=== PATIENT | male | born 1950 | race Caucasian/White ===

== ENCOUNTER 2019-11-08 14:56 | Inpatient (IN) ==
[2019-11-08] MEDS ORDERED: *HR* HYDROmorphone (PF) 1 MG/ML SYRINGE IVP ONE (15:19)
[2019-11-08 15:47] LABS: Basophils # 0.1 K/mcL (0.0-0.2); Basophils % 0.6 %; Eosinophils # 0.1 K/mcL (0.0-0.6); Eosinophils % 0.5 %; Hematocrit 40.2 % (37.5-50.1); Hemoglobin 13.3 g/dL (12.9-16.9); Immature Granulocytes % 0.6 % (0-4); Lymphocytes % 25.1 %; Mean Corpuscular HGB Conc 33.1 g/dL (31.6-35.5); Mean Corpuscular Volume 87.6 fL (83.0-100.0); Mean Platelet Volume 10.3 fL (9.4-12.4); Monocytes % 8.5 %; Neutrophils # 7.6 K/mcL (1.6-8.9); Platelet Count 465 K/mcL (140-400); Red Blood Count 4.59 M/mcL (4.19-5.50); Red Cell Distribution Width 14.2 % (11.5-14.5); Segmented Neutrophils % 64.7 %; White Blood Count 11.8 K/mcL (4.3-11.1)
[2019-11-08 15:56] LABS: BUN/Creatinine Ratio 21 (6-26); Blood Urea Nitrogen 24 mg/dL (8-23); Calcium 9.8 mg/dL (8.6-10.3); Carbon Dioxide 27 mEq/L (23-29); Chloride 100 mEq/L (98-107); Glucose 227 mg/dL (70-105); Osmolality,Calculated 297 (280-300); Potassium 3.8 mEq/L (3.5-5.1); Sodium 138 mEq/L (136-145); Troponin I 0.03 ng/mL (< 0.04); eGFR For African Americans > 60 (> 60); eGFR For Non-African Americans > 60 (> 60)
[2019-11-08 16:24] LABS: Bilirubin,Urine Negative (Negative); Blood,Urine Negative (Negative); Clarity,Urine Clear (Clear); Color,Urine Yellow (Yellow); Glucose,Urine (UA) Normal (Normal); Ketones,Urine Negative (Negative); Leukocyte Esterase,Urine Negative (Negative); Nitrite,Urine Negative (Negative); Protein,Urine Trace mg/dL (Neg-Trace); Specific Gravity,Urine 1.016 (1.010-1.025); Urobilinogen,Urine Normal (Normal)
[2019-11-08] MEDS ORDERED: Aspirin 325 MG TABLET PO ONE (16:51)
[2019-11-08] MEDS ORDERED: Naloxone 0.4 MG/ML INJ IVP PRN (16:54)
[2019-11-08] MEDS ORDERED: Ondansetron 4 MG/2 ML VIAL IVP PRN (16:54)
[2019-11-08] MEDS ORDERED: 0.9 % Sodium Chloride 500 ML IVC ONE (17:16)
[2019-11-08] MEDS ORDERED: *HR* Labetalol 20 MG/4 ML SYRINGE IVP PRN (17:16)
[2019-11-08] MEDS ORDERED: Isovue-370 500 ML BOTTLE IVP ONE (17:17)
[2019-11-08] MEDS ORDERED: *HR* Dextrose 50 % in Water (Syg) 50 ML SYRINGE IVP PRN (17:18)
[2019-11-08] MEDS ORDERED: D5% in Water 1,000 ML IVC PRN (17:18)
[2019-11-08] MEDS ORDERED: Dextrose Gel 15 GM/37.5 ML TUBE PO PRN ×2 (17:18)
[2019-11-08] MEDS ORDERED: Acetaminophen 325 MG TABLET PO PRN (17:18)
[2019-11-08] MEDS: *HR* HYDROcodone/Acet 5/325 mg TABLET PO PRN (18:47)
[2019-11-08] MEDS ORDERED: Azithromycin 500 MG in 0.9 % Sodium Chloride 250 ML IVPB SCH (22:00)
[2019-11-08] MEDS: 0.9 % Sodium Chloride 1,000 ML IVC SCH (22:55)
[2019-11-08] MEDS: Nitroglycerin 0.4 MG TAB.SUBL SL PRN ×2 (23:20→23:35)
[2019-11-09] MEDS ORDERED: Morphine Sulfate 2 MG/ML SYRINGE IVP ONE (00:05)
[2019-11-09] MEDS: cefTRIAXone 1,000 MG in Water for inj. (sterile) 10 ML IVP SCH ×2 (00:30→08:54)
[2019-11-09] MEDS ORDERED: Pregabalin 50 MG CAPSULE PO ONE (00:44)
[2019-11-09] MEDS ORDERED: *HR* Promethazine 25 MG/ML VIAL IVP ONE (03:12)
[2019-11-09] MEDS ORDERED: niCARdipine 20 MG in 0.9 % Sodium Chloride 192 ML IVC SCH (03:30)
[2019-11-09] MEDS: tiZANidine 4 MG TABLET PO PRN (04:02)
[2019-11-09 04:33] LABS: Basophils # 0.1 K/mcL (0.0-0.2); Basophils % 0.6 %; Eosinophils % 0.1 %; Immature Granulocytes % 0.5 % (0-4); Lymphocytes # 2.3 K/mcL (0.6-4.6); Lymphocytes % 21.4 %; Mean Corpuscular HGB Conc 32.6 g/dL (31.6-35.5); Mean Corpuscular Hemoglobin 28.4 pg (28.0-33.3); Mean Corpuscular Volume 87.1 fL (83.0-100.0); Mean Platelet Volume 10.5 fL (9.4-12.4); Monocytes # 0.6 K/mcL (0.0-1.3); Monocytes % 5.1 %; Neutrophils # 7.8 K/mcL (1.6-8.9); Platelet Count 425 K/mcL (140-400); Red Blood Count 5.28 M/mcL (4.19-5.50); Red Cell Distribution Width 14.1 % (11.5-14.5); Segmented Neutrophils % 72.3 %; White Blood Count 10.8 K/mcL (4.3-11.1)
[2019-11-09 04:51] LABS: BUN/Creatinine Ratio 18 (6-26); Blood Urea Nitrogen 18 mg/dL (8-23); Calcium 10.4 mg/dL (8.6-10.3); Carbon Dioxide 25 mEq/L (23-29); Chloride 98 mEq/L (98-107); Chol/HDL Ratio 4.1 (0-4.9); Cholesterol 213 mg/dL (< 200); Glucose 252 mg/dL (70-105); HDL Cholesterol 52 mg/dL (40-59); LDL Cholesterol,Calculated 136 mg/dL (0-99); Magnesium 1.7 mg/dL (1.6-2.6); Osmolality,Calculated 294 (280-300); Potassium 3.6 mEq/L (3.5-5.1); Sodium 137 mEq/L (136-145); Triglycerides 124 mg/dL (< 150); eGFR For African Americans > 60 (> 60); eGFR For Non-African Americans > 60 (> 60)
[2019-11-09] MEDS: niCARdipine 20 MG in 0.9 % Sodium Chloride 192 ML IVC SCH ×3 (05:25→10:27)
[2019-11-09 08:41] LABS: Estimated Average Glucose 177 mg/dl
[2019-11-09] MEDS: *HR* HYDROcodone/Acet 5/325 mg TABLET PO PRN (08:53)
[2019-11-09] MEDS: Famotidine 20 MG TABLET PO SCH ×2 (08:53→20:31)
[2019-11-09] MEDS: Isosorbide MONOnitrate (24 HR) 30 MG TAB.ER.24H PO SCH (08:53)
[2019-11-09] MEDS: carvediloL 6.25 MG TABLET PO SCH ×2 (08:53→16:32)
[2019-11-09] MEDS: Aspirin Enteric Coated 81 MG Tablet PO SCH (08:53)
[2019-11-09] MEDS: Insulin LISPRO 300 UNITS/3 ML VIAL SQ SCH ×3 (09:03→16:31)
[2019-11-09] MEDS: *HR* OxyCODONE ER (12 HR) 20 MG TABLET PO SCH ×2 (09:04→20:31)
[2019-11-09] MEDS: Fluticasone Propionate Nasal 50 MCG/SPRAY BOTTLE NS SCH (09:05)
[2019-11-09] MEDS: hydrALAZINE 25 MG TABLET PO SCH ×3 (09:05→23:20)
[2019-11-09] MEDS: Pregabalin 50 MG CAPSULE PO SCH ×3 (09:05→20:31)
[2019-11-09] MEDS: ARIPiprazole 5 MG TABLET PO SCH (09:06)
[2019-11-09] MEDS: *HR* OxyCODONE Immed Rel 5 MG TABLET PO PRN (11:48)
[2019-11-09] MEDS ORDERED: Perflutren Lipid Microsphere 1.3 ML in 0.9 % Sodium Chloride 8.7 ML IVP ONE (12:50)
[2019-11-09] MEDS: Ampicillin/Sulbactam 1,500 MG in 0.9 % Sodium Chloride Mini Bag 100 ML IVPB SCH ×2 (18:42→23:25)
[2019-11-09] MEDS: 0.9 % Sodium Chloride 1,000 ML IVC SCH (20:33)
[2019-11-10] MEDS: Ampicillin/Sulbactam 1,500 MG in 0.9 % Sodium Chloride Mini Bag 100 ML IVPB SCH ×3 (05:32→17:09)
[2019-11-10] MEDS ORDERED: Regadenoson 0.4 MG/5 ML SYRINGE IVP ONE ×2 (06:08→06:17)
[2019-11-10] MEDS: Insulin LISPRO 300 UNITS/3 ML VIAL SQ SCH ×3 (07:47→17:08)
[2019-11-10] MEDS: carvediloL 6.25 MG TABLET PO SCH ×2 (10:09→17:08)
[2019-11-10] MEDS: ARIPiprazole 5 MG TABLET PO SCH (10:09)
[2019-11-10] MEDS: Famotidine 20 MG TABLET PO SCH ×2 (10:09→21:16)
[2019-11-10] MEDS: hydrALAZINE 25 MG TABLET PO SCH (10:09)
[2019-11-10] MEDS: Pregabalin 50 MG CAPSULE PO SCH ×3 (10:09→21:17)
[2019-11-10] MEDS: Aspirin Enteric Coated 81 MG Tablet PO SCH (10:10)
[2019-11-10] MEDS: Isosorbide MONOnitrate (24 HR) 30 MG TAB.ER.24H PO SCH (10:10)
[2019-11-10] MEDS: *HR* OxyCODONE ER (12 HR) 20 MG TABLET PO SCH ×2 (10:10→21:17)
[2019-11-10] MEDS: Fluticasone Propionate Nasal 50 MCG/SPRAY BOTTLE NS SCH (10:14)
[2019-11-10] MEDS ORDERED: E-Z-PAQUE (BARIUM SULF) SUSP 1 BOTTLE PO ONE (16:06)
[2019-11-10] MEDS ORDERED: E-Z-HD (BARIUM SULF) SUSPENSION PO ONE (16:06)
[2019-11-10] MEDS: *HR* HYDROcodone/Acet 5/325 mg TABLET PO PRN (17:16)
[2019-11-11] MEDS: Ampicillin/Sulbactam 1,500 MG in 0.9 % Sodium Chloride Mini Bag 100 ML IVPB SCH ×5 (00:08→23:18)
[2019-11-11] MEDS: *HR* OxyCODONE Immed Rel 5 MG TABLET PO PRN ×2 (03:28→16:41)
[2019-11-11 05:29] LABS: Basophils # 0.1 K/mcL (0.0-0.2); Basophils % 0.8 %; Eosinophils # 0.4 K/mcL (0.0-0.6); Eosinophils % 4.5 %; Hematocrit 37.2 % (37.5-50.1); Immature Granulocytes % 0.1 % (0-4); Lymphocytes # 3.6 K/mcL (0.6-4.6); Lymphocytes % 45.7 %; Mean Corpuscular HGB Conc 32.8 g/dL (31.6-35.5); Mean Corpuscular Hemoglobin 28.8 pg (28.0-33.3); Mean Corpuscular Volume 87.9 fL (83.0-100.0); Mean Platelet Volume 10.2 fL (9.4-12.4); Monocytes # 0.8 K/mcL (0.0-1.3); Monocytes % 10.1 %; Platelet Count 419 K/mcL (140-400); Red Blood Count 4.23 M/mcL (4.19-5.50); Red Cell Distribution Width 14.3 % (11.5-14.5); Segmented Neutrophils % 38.8 %; White Blood Count 7.8 K/mcL (4.3-11.1)
[2019-11-11 05:41] LABS: Calcium 9.1 mg/dL (8.6-10.3); Potassium 3.8 mEq/L (3.5-5.1)
[2019-11-11 05:53] LABS: Hemoglobin 12.2 g/dL (12.9-16.9)
[2019-11-11] MEDS: Insulin LISPRO 300 UNITS/3 ML VIAL SQ SCH ×3 (07:59→16:38)
[2019-11-11] MEDS: Aspirin Enteric Coated 81 MG Tablet PO SCH (09:41)
[2019-11-11] MEDS: ARIPiprazole 5 MG TABLET PO SCH (09:42)
[2019-11-11] MEDS: Famotidine 20 MG TABLET PO SCH ×2 (09:42→20:15)
[2019-11-11] MEDS: *HR* OxyCODONE ER (12 HR) 20 MG TABLET PO SCH ×2 (09:42→20:17)
[2019-11-11] MEDS: carvediloL 6.25 MG TABLET PO SCH ×2 (09:42→16:37)
[2019-11-11] MEDS: Pregabalin 50 MG CAPSULE PO SCH ×3 (09:43→20:17)
[2019-11-11] MEDS: Fluticasone Propionate Nasal 50 MCG/SPRAY BOTTLE NS SCH (09:43)
[2019-11-11] MEDS: *HR* HYDROcodone/Acet 5/325 mg TABLET PO PRN (13:10)
[2019-11-11] MEDS ORDERED: 0.9 % Sodium Chloride 1,000 ML IVC SCH (14:00)
[2019-11-12 05:51] LABS: Basophils # 0.1 K/mcL (0.0-0.2); Basophils % 0.7 %; Eosinophils # 0.5 K/mcL (0.0-0.6); Hematocrit 39.4 % (37.5-50.1); Hemoglobin 12.4 g/dL (12.9-16.9); Immature Granulocytes % 0.3 % (0-4); Lymphocytes # 3.5 K/mcL (0.6-4.6); Lymphocytes % 35.7 %; Mean Corpuscular HGB Conc 31.5 g/dL (31.6-35.5); Mean Corpuscular Hemoglobin 28.9 pg (28.0-33.3); Mean Corpuscular Volume 91.8 fL (83.0-100.0); Monocytes # 0.9 K/mcL (0.0-1.3); Monocytes % 9.3 %; Neutrophils # 4.9 K/mcL (1.6-8.9); Platelet Count 380 K/mcL (140-400); Red Blood Count 4.29 M/mcL (4.19-5.50); Red Cell Distribution Width 14.4 % (11.5-14.5); White Blood Count 9.9 K/mcL (4.3-11.1)
[2019-11-12] MEDS: Ampicillin/Sulbactam 1,500 MG in 0.9 % Sodium Chloride Mini Bag 100 ML IVPB SCH ×3 (06:07→18:37)
[2019-11-12 06:10] LABS: BUN/Creatinine Ratio 20 (6-26); Blood Urea Nitrogen 28 mg/dL (8-23); Calcium 9.2 mg/dL (8.6-10.3); Carbon Dioxide 29 mEq/L (23-29); Chloride 104 mEq/L (98-107); Glucose 134 mg/dL (70-105); Osmolality,Calculated 293 (280-300); Potassium 4.3 mEq/L (3.5-5.1); Sodium 138 mEq/L (136-145); eGFR For African Americans > 60 (> 60); eGFR For Non-African Americans 52 (> 60)
[2019-11-12] MEDS: Insulin LISPRO 300 UNITS/3 ML VIAL SQ SCH ×3 (08:08→18:37)
[2019-11-12] MEDS ORDERED: 0.9 % Sodium Chloride 1,000 ML IVC SCH (08:15)
[2019-11-12] MEDS: Aspirin Enteric Coated 81 MG Tablet PO SCH (08:41)
[2019-11-12] MEDS: *HR* OxyCODONE ER (12 HR) 20 MG TABLET PO SCH ×2 (08:41→21:11)
[2019-11-12] MEDS: ARIPiprazole 5 MG TABLET PO SCH (08:41)
[2019-11-12] MEDS: Pregabalin 50 MG CAPSULE PO SCH ×3 (08:41→21:12)
[2019-11-12] MEDS: Famotidine 20 MG TABLET PO SCH ×2 (08:41→21:10)
[2019-11-12] MEDS: carvediloL 6.25 MG TABLET PO SCH ×2 (08:41→15:42)
[2019-11-12] MEDS: Fluticasone Propionate Nasal 50 MCG/SPRAY BOTTLE NS SCH (08:42)
[2019-11-12] MEDS: *HR* OxyCODONE Immed Rel 5 MG TABLET PO PRN (12:31)
[2019-11-12] MEDS: *HR* HYDROcodone/Acet 5/325 mg TABLET PO PRN (15:42)
[2019-11-12] MEDS ORDERED: Menthol 9.1 MG LOZENGE PO PRN (23:08)
[2019-11-13] MEDS: Ampicillin/Sulbactam 1,500 MG in 0.9 % Sodium Chloride Mini Bag 100 ML IVPB SCH ×2 (00:38→05:44)
[2019-11-13] MEDS: tiZANidine 4 MG TABLET PO PRN (00:39)
[2019-11-13 02:49] LABS: Basophils # 0.1 K/mcL (0.0-0.2); Basophils % 0.6 %; Eosinophils # 0.5 K/mcL (0.0-0.6); Eosinophils % 5.5 %; Hematocrit 38.3 % (37.5-50.1); Immature Granulocytes % 0.1 % (0-4); Lymphocytes # 3.4 K/mcL (0.6-4.6); Lymphocytes % 36.7 %; Mean Corpuscular HGB Conc 31.3 g/dL (31.6-35.5); Mean Corpuscular Hemoglobin 28.8 pg (28.0-33.3); Mean Corpuscular Volume 92.1 fL (83.0-100.0); Mean Platelet Volume 10.4 fL (9.4-12.4); Monocytes # 0.9 K/mcL (0.0-1.3); Neutrophils # 4.4 K/mcL (1.6-8.9); Platelet Count 374 K/mcL (140-400); Red Blood Count 4.16 M/mcL (4.19-5.50); Segmented Neutrophils % 47.1 %; White Blood Count 9.3 K/mcL (4.3-11.1)
[2019-11-13 03:09] LABS: BUN/Creatinine Ratio 15 (6-26); Blood Urea Nitrogen 20 mg/dL (8-23); Calcium 9.2 mg/dL (8.6-10.3); Carbon Dioxide 28 mEq/L (23-29); Chloride 103 mEq/L (98-107); Glucose 109 mg/dL (70-105); Osmolality,Calculated 291 (280-300); Potassium 4.2 mEq/L (3.5-5.1); Sodium 139 mEq/L (136-145); eGFR For African Americans > 60 (> 60); eGFR For Non-African Americans 54 (> 60)
[2019-11-13] MEDS: Insulin LISPRO 300 UNITS/3 ML VIAL SQ SCH (08:16)
[2019-11-13] MEDS: Pregabalin 50 MG CAPSULE PO SCH (08:42)
[2019-11-13] MEDS: Aspirin Enteric Coated 81 MG Tablet PO SCH (08:43)
[2019-11-13] MEDS: carvediloL 6.25 MG TABLET PO SCH (08:43)
[2019-11-13] MEDS: *HR* OxyCODONE ER (12 HR) 20 MG TABLET PO SCH (08:43)
[2019-11-13] MEDS: ARIPiprazole 5 MG TABLET PO SCH (08:43)
[2019-11-13] MEDS: Famotidine 20 MG TABLET PO SCH (08:43)
[2019-11-13] MEDS: Fluticasone Propionate Nasal 50 MCG/SPRAY BOTTLE NS SCH (08:46)
[2019-11-13 12:17] VITALS: BP 170/78
== END 2019-11-13 13:56 | disposition home or self-care (01) | DRG 304 ==
LOC: 3ANU 14:56 → EMEROOARM 14:56 → SUATTDRO 17:03 → 3ANU 18:19 → CDU 11-09 03:44 → 3BNU 11-09 16:46
PROVIDERS: ADMIT Student in an Organized Health Care Education/Training Program; ATTEND Internal Medicine

== ENCOUNTER 2020-07-31 08:29 | Inpatient (IN) ==
[2020-07-31] MEDS ORDERED: 0.9 % Sodium Chloride 500 ML IVC ONE (09:18)
[2020-07-31 09:28] LABS: BUN/Creatinine Ratio 15 (6-26); Blood Urea Nitrogen 24 mg/dL (8-23); Carbon Dioxide 31 mEq/L (23-29); Chloride 99 mEq/L (98-107); Glucose 164 mg/dL (70-105); Osmolality,Calculated 292 (280-300); Potassium 4.7 mEq/L (3.5-5.1); Sodium 137 mEq/L (136-145); eGFR For African Americans 51 (> 60); eGFR For Non-African Americans 42 (> 60)
[2020-07-31 09:29] LABS: Troponin I < 0.03 ng/mL (< 0.04)
[2020-07-31 09:30] LABS: Basophils # 0.1 K/mcL (0.0-0.2); Basophils % 0.8 %; Eosinophils # 0.1 K/mcL (0.0-0.6); Eosinophils % 1.2 %; Hematocrit 39.8 % (37.5-50.1); Hemoglobin 12.3 g/dL (12.9-16.9); Immature Granulocytes % 0.2 % (0-4); Lymphocytes # 2.3 K/mcL (0.6-4.6); Lymphocytes % 24.9 %; Mean Corpuscular HGB Conc 30.9 g/dL (31.6-35.5); Mean Corpuscular Hemoglobin 25.8 pg (28.0-33.3); Mean Corpuscular Volume 83.6 fL (83.0-100.0); Mean Platelet Volume 11.6 fL (9.4-12.4); Monocytes # 0.6 K/mcL (0.0-1.3); Monocytes % 6.5 %; Neutrophils # 6.1 K/mcL (1.6-8.9); Platelet Count 368 K/mcL (140-400); Red Blood Count 4.76 M/mcL (4.19-5.50); Red Cell Distribution Width 15.9 % (11.5-14.5); Segmented Neutrophils % 66.4 %; White Blood Count 9.1 K/mcL (4.3-11.1)
[2020-07-31] MEDS ORDERED: Acetaminophen IV 1,000 MG/100 ML INFUS..BTL IVPB ONE (10:16)
[2020-07-31] MEDS ORDERED: Acetaminophen 325 MG TABLET PO PRN (10:59)
[2020-07-31] MEDS ORDERED: Aspirin 325 MG TABLET PO ONE (11:02)
[2020-07-31] MEDS: *HR* Promethazine 25 MG/ML VIAL IVP PRN ×2 (12:39→20:14)
[2020-07-31] MEDS ORDERED: *HR* Dextrose 50 % in Water (Vial) 50 ML VIAL IVP PRN (13:13)
[2020-07-31] MEDS ORDERED: D5% in Water 1,000 ML IVC PRN (13:13)
[2020-07-31] MEDS ORDERED: Dextrose Gel 15 GM/37.5 ML TUBE PO PRN ×2 (13:13)
[2020-07-31] MEDS: Insulin LISPRO 300 UNITS/3 ML VIAL SQ SCH ×3 (13:45→20:53)
[2020-07-31] MEDS: *HR* Heparin 5,000 UNIT/ML VIAL SQ SCH ×2 (13:49→21:59)
[2020-07-31] MEDS: Pregabalin 50 MG CAPSULE PO SCH ×2 (13:50→20:03)
[2020-07-31] MEDS: *HR* OxyCODONE Immed Rel 5 MG TABLET PO PRN (13:50)
[2020-07-31] MEDS: hydrALAZINE 25 MG TABLET PO SCH ×3 (13:50→21:59)
[2020-07-31] MEDS: Isosorbide MONOnitrate (24 HR) 30 MG TAB.ER.24H PO SCH (13:55)
[2020-07-31] MEDS: Famotidine 20 MG TABLET PO SCH (16:36)
[2020-07-31] MEDS: carvediloL 6.25 MG TABLET PO SCH (16:37)
[2020-07-31] MEDS ORDERED: tiZANidine 4 MG TABLET PO PRN (18:32)
[2020-07-31] MEDS: Sucralfate 1 GM TABLET PO SCH (20:03)
[2020-07-31] MEDS: *HR* Buprenorphine HCl 2 MG SUBLINGUAL TABLET SL SCH (20:04)
[2020-07-31] MEDS: Insulin DETEMIR 100 UNIT/ML X5UNITS SQ SCH (20:12)
[2020-07-31] MEDS ORDERED: NON-FORMULARY MEDICATION 1 EACH EACH (Atorvastatin Calcium [Lipitor] 40 MG) PO SCH (21:00)
[2020-07-31] MEDS: Budesonide/Formoterol 160/4.5 1 PUFF INH IH SCH (21:42)
[2020-07-31] MEDS: *HR* OxyCODONE ER (12 HR) 10 MG TABLET PO SCH (21:59)
[2020-08-01 00:38] LABS: Hemoglobin 11.7 g/dL (12.9-16.9); Mean Corpuscular HGB Conc 31.6 g/dL (31.6-35.5); Mean Corpuscular Volume 85.5 fL (83.0-100.0); Mean Platelet Volume 11.1 fL (9.4-12.4); Platelet Count 345 K/mcL (140-400); Red Blood Count 4.33 M/mcL (4.19-5.50); Red Cell Distribution Width 16.2 % (11.5-14.5); White Blood Count 7.4 K/mcL (4.3-11.1)
[2020-08-01 00:57] LABS: Calcium 9.4 mg/dL (8.6-10.3); Potassium 4.4 mEq/L (3.5-5.1)
[2020-08-01] MEDS: *HR* Heparin 5,000 UNIT/ML VIAL SQ SCH ×3 (06:03→21:11)
[2020-08-01] MEDS: Insulin LISPRO 300 UNITS/3 ML VIAL SQ SCH ×4 (07:45→21:00)
[2020-08-01] MEDS ORDERED: carvediloL 25 MG TABLET PO SCH (08:00)
[2020-08-01] MEDS: ARIPiprazole 5 MG TABLET PO SCH (08:23)
[2020-08-01] MEDS: carvediloL 6.25 MG TABLET PO SCH ×2 (08:23→16:58)
[2020-08-01] MEDS: Aspirin 81 MG TAB.CHEW PO SCH (08:23)
[2020-08-01] MEDS: Famotidine 20 MG TABLET PO SCH ×2 (08:23→14:43)
[2020-08-01] MEDS: Isosorbide MONOnitrate (24 HR) 30 MG TAB.ER.24H PO SCH (08:24)
[2020-08-01] MEDS: hydrALAZINE 25 MG TABLET PO SCH ×4 (08:24→21:12)
[2020-08-01] MEDS: Sucralfate 1 GM TABLET PO SCH ×2 (08:24→21:12)
[2020-08-01] MEDS: amLODIPine 5 MG TABLET PO SCH (08:24)
[2020-08-01] MEDS: Pregabalin 50 MG CAPSULE PO SCH ×3 (08:24→21:12)
[2020-08-01] MEDS: *HR* OxyCODONE ER (12 HR) 10 MG TABLET PO SCH ×2 (08:25→21:12)
[2020-08-01] MEDS: *HR* Buprenorphine HCl 2 MG SUBLINGUAL TABLET SL SCH ×2 (08:25→21:12)
[2020-08-01] MEDS ORDERED: Aspirin Enteric Coated 81 MG Tablet PO SCH (09:00)
[2020-08-01] MEDS ORDERED: BUPRENORPHINE HCL SL SCH (09:15)
[2020-08-01] MEDS ORDERED: NALOXONE HCL SL SCH (09:15)
[2020-08-01] MEDS: Budesonide/Formoterol 160/4.5 1 PUFF INH IH SCH ×2 (09:55→21:34)
[2020-08-01] MEDS: 0.9 % Sodium Chloride 1,000 ML IVC SCH ×2 (10:14→20:11)
[2020-08-01] MEDS: *HR* Promethazine 25 MG/ML VIAL IVP PRN (14:43)
[2020-08-01] MEDS: Insulin DETEMIR 100 UNIT/ML X5UNITS SQ SCH (21:11)
[2020-08-02] MEDS: Famotidine 20 MG TABLET PO SCH ×2 (05:51→18:02)
[2020-08-02] MEDS: *HR* Heparin 5,000 UNIT/ML VIAL SQ SCH ×3 (05:51→22:04)
[2020-08-02] MEDS: 0.9 % Sodium Chloride 1,000 ML IVC SCH ×2 (05:55→14:23)
[2020-08-02 06:02] LABS: Phosphorous 3.6 mg/dL (2.7-4.5); Potassium 4.2 mEq/L (3.5-5.1)
[2020-08-02] MEDS: Insulin LISPRO 300 UNITS/3 ML VIAL SQ SCH ×4 (09:01→20:16)
[2020-08-02] MEDS: Sucralfate 1 GM TABLET PO SCH ×2 (09:09→19:43)
[2020-08-02] MEDS: Aspirin 81 MG TAB.CHEW PO SCH (09:09)
[2020-08-02] MEDS: carvediloL 6.25 MG TABLET PO SCH ×2 (09:09→18:03)
[2020-08-02] MEDS: *HR* Buprenorphine HCl 2 MG SUBLINGUAL TABLET SL SCH ×2 (09:09→19:43)
[2020-08-02] MEDS: Pregabalin 50 MG CAPSULE PO SCH ×3 (09:11→19:42)
[2020-08-02] MEDS: ARIPiprazole 5 MG TABLET PO SCH (09:11)
[2020-08-02] MEDS: hydrALAZINE 25 MG TABLET PO SCH ×4 (09:12→19:43)
[2020-08-02] MEDS: Isosorbide MONOnitrate (24 HR) 30 MG TAB.ER.24H PO SCH (09:12)
[2020-08-02] MEDS: amLODIPine 5 MG TABLET PO SCH (09:13)
[2020-08-02] MEDS: *HR* OxyCODONE ER (12 HR) 10 MG TABLET PO SCH ×2 (09:13→19:39)
[2020-08-02] MEDS: Budesonide/Formoterol 160/4.5 1 PUFF INH IH SCH ×2 (10:26→23:12)
[2020-08-02] MEDS: *HR* Promethazine 25 MG/ML VIAL IVP PRN (11:38)
[2020-08-02] MEDS: *HR* OxyCODONE Immed Rel 5 MG TABLET PO PRN ×2 (12:04→22:05)
[2020-08-02] MEDS ORDERED: Ondansetron ODT 4 MG TAB.RAPDIS SL PRN (13:14)
[2020-08-02] MEDS: Insulin DETEMIR 100 UNIT/ML X5UNITS SQ SCH (19:43)
[2020-08-03] MEDS: 0.9 % Sodium Chloride 1,000 ML IVC SCH (02:35)
[2020-08-03 05:08] LABS: Calcium 8.9 mg/dL (8.6-10.3); Potassium 4.2 mEq/L (3.5-5.1)
[2020-08-03] MEDS: Famotidine 20 MG TABLET PO SCH (05:40)
[2020-08-03] MEDS: *HR* Heparin 5,000 UNIT/ML VIAL SQ SCH (05:41)
[2020-08-03] MEDS: Insulin LISPRO 300 UNITS/3 ML VIAL SQ SCH ×2 (08:30→13:10)
[2020-08-03] MEDS: amLODIPine 5 MG TABLET PO SCH (08:58)
[2020-08-03] MEDS: Aspirin 81 MG TAB.CHEW PO SCH (08:58)
[2020-08-03] MEDS: Isosorbide MONOnitrate (24 HR) 30 MG TAB.ER.24H PO SCH (08:58)
[2020-08-03] MEDS: Sucralfate 1 GM TABLET PO SCH (08:59)
[2020-08-03] MEDS: ARIPiprazole 5 MG TABLET PO SCH (08:59)
[2020-08-03] MEDS: *HR* Buprenorphine HCl 2 MG SUBLINGUAL TABLET SL SCH (08:59)
[2020-08-03] MEDS: carvediloL 6.25 MG TABLET PO SCH (08:59)
[2020-08-03] MEDS: *HR* OxyCODONE ER (12 HR) 10 MG TABLET PO SCH (08:59)
[2020-08-03] MEDS: Pregabalin 50 MG CAPSULE PO SCH (08:59)
[2020-08-03] MEDS: hydrALAZINE 25 MG TABLET PO SCH (08:59)
[2020-08-03] MEDS: Budesonide/Formoterol 160/4.5 1 PUFF INH IH SCH (11:08)
[2020-08-03 11:36] VITALS: BP 101/62
== END 2020-08-03 14:04 | disposition home health service (06) | DRG 302 ==
LOC: EMEROOARM 08:29 → 3BNU 08:29 → SUATTDRO 11:20 → 3BNU 12:16
PROVIDERS: ADMIT Internal Medicine; ATTEND Internal Medicine

== ENCOUNTER 2020-10-04 16:03 | Observation (INO) ==
[2020-10-04 16:42] LABS: Basophils # 0.1 K/mcL (0.0-0.2); Basophils % 0.7 %; Eosinophils # 0.4 K/mcL (0.0-0.6); Hematocrit 37.2 % (37.5-50.1); Hemoglobin 11.2 g/dL (12.9-16.9); Immature Granulocytes % 0.3 % (0-4); Lymphocytes # 2.1 K/mcL (0.6-4.6); Lymphocytes % 24.5 %; Mean Corpuscular HGB Conc 30.1 g/dL (31.6-35.5); Mean Corpuscular Hemoglobin 26.2 pg (28.0-33.3); Mean Corpuscular Volume 87.1 fL (83.0-100.0); Mean Platelet Volume 11.3 fL (9.4-12.4); Neutrophils # 5.2 K/mcL (1.6-8.9); Platelet Count 350 K/mcL (140-400); Red Blood Count 4.27 M/mcL (4.19-5.50); Segmented Neutrophils % 59.5 %; White Blood Count 8.7 K/mcL (4.3-11.1)
[2020-10-04 17:02] LABS: BUN/Creatinine Ratio 23 (6-26); Blood Urea Nitrogen 37 mg/dL (8-23); Calcium 9.2 mg/dL (8.6-10.3); Carbon Dioxide 30 mEq/L (23-29); Chloride 103 mEq/L (98-107); Glucose 112 mg/dL (70-105); Osmolality,Calculated 295 (280-300); Potassium 4.5 mEq/L (3.5-5.1); Sodium 138 mEq/L (136-145); Troponin I < 0.03 ng/mL (< 0.04); eGFR For African Americans 51 (> 60); eGFR For Non-African Americans 42 (> 60)
[2020-10-04] MEDS ORDERED: Nitroglycerin 0.4 MG TAB.SUBL SL STA (17:56)
[2020-10-04] MEDS ORDERED: Furosemide 40 MG/4 ML VIAL IVP ONE (17:56)
[2020-10-04] MEDS ORDERED: Naloxone 0.4 MG/ML INJ IVP PRN (18:15)
[2020-10-04] MEDS ORDERED: Dextrose Gel 15 GM/37.5 ML TUBE PO PRN ×2 (18:35)
[2020-10-04] MEDS ORDERED: *HR* Dextrose 50 % in Water (Vial) 50 ML VIAL IVP PRN (18:35)
[2020-10-04] MEDS ORDERED: D5% in Water 1,000 ML IVC PRN (18:35)
[2020-10-04] MEDS: *HR* Heparin 5,000 UNIT/ML VIAL SQ SCH (22:12)
[2020-10-04] MEDS: Insulin LISPRO 300 UNITS/3 ML VIAL SQ SCH (22:14)
[2020-10-05] MEDS ORDERED: Regadenoson 0.4 MG/5 ML SYRINGE IVP ONE (06:18)
[2020-10-05] MEDS: *HR* Heparin 5,000 UNIT/ML VIAL SQ SCH ×3 (06:37→19:40)
[2020-10-05 06:42] LABS: Calcium 9.6 mg/dL (8.6-10.3); Potassium 4.2 mEq/L (3.5-5.1)
[2020-10-05] MEDS: Insulin LISPRO 300 UNITS/3 ML VIAL SQ SCH ×4 (07:21→19:46)
[2020-10-05] MEDS: carvediloL 6.25 MG TABLET PO SCH ×2 (09:42→17:09)
[2020-10-05] MEDS: Aspirin Enteric Coated 81 MG Tablet PO SCH (09:42)
[2020-10-05] MEDS ORDERED: tiZANidine 4 MG TABLET PO PRN (10:55)
[2020-10-05] MEDS ORDERED: polyethylene glycoL 3350 17 GM POWD.PACK PO PRN (10:55)
[2020-10-05] MEDS ORDERED: Ondansetron ODT 4 MG TAB.RAPDIS PO PRN (10:55)
[2020-10-05] MEDS ORDERED: Ipratropium/Albuterol Neb 3 ML IH PRN (10:55)
[2020-10-05] MEDS ORDERED: Sennosides 8.6 MG TABLET PO PRN (11:02)
[2020-10-05] MEDS: Furosemide 40 MG/4 ML VIAL IVP SCH (13:02)
[2020-10-05] MEDS: Isosorbide MONOnitrate (24 HR) 30 MG TAB.ER.24H PO SCH (14:16)
[2020-10-05] MEDS: Pregabalin 75 MG CAPSULE PO SCH ×2 (14:16→19:41)
[2020-10-05] MEDS: Artificial Tears SOLN 15 ML BOTTLE BOTH EYES SCH ×2 (14:17→19:46)
[2020-10-05] MEDS: Budesonide/Formoterol 160/4.5 1 PUFF INH IH SCH (19:54)
[2020-10-05] MEDS ORDERED: Acetaminophen 325 MG TABLET PO PRN (22:47)
[2020-10-06 02:19] LABS: Hematocrit 35.8 % (37.5-50.1); Hemoglobin 11.2 g/dL (12.9-16.9); Mean Corpuscular HGB Conc 31.3 g/dL (31.6-35.5); Mean Corpuscular Hemoglobin 26.4 pg (28.0-33.3); Mean Corpuscular Volume 84.4 fL (83.0-100.0); Mean Platelet Volume 11.8 fL (9.4-12.4); Platelet Count 305 K/mcL (140-400); Red Blood Count 4.24 M/mcL (4.19-5.50); Red Cell Distribution Width 16.4 % (11.5-14.5); White Blood Count 6.8 K/mcL (4.3-11.1)
[2020-10-06 02:41] LABS: Calcium 9.4 mg/dL (8.6-10.3); Potassium 3.7 mEq/L (3.5-5.1)
[2020-10-06] MEDS ORDERED: tiZANidine 4 MG TABLET PO ONE (03:33)
[2020-10-06] MEDS: *HR* Heparin 5,000 UNIT/ML VIAL SQ SCH (05:51)
[2020-10-06 06:32] VITALS: BP 138/62
[2020-10-06] MEDS: Isosorbide MONOnitrate (24 HR) 30 MG TAB.ER.24H PO SCH (08:32)
[2020-10-06] MEDS: carvediloL 6.25 MG TABLET PO SCH (08:32)
[2020-10-06] MEDS: Pregabalin 75 MG CAPSULE PO SCH (08:33)
[2020-10-06] MEDS: Furosemide 40 MG/4 ML VIAL IVP SCH (08:34)
[2020-10-06] MEDS: Aspirin Enteric Coated 81 MG Tablet PO SCH (08:34)
[2020-10-06] MEDS: Budesonide/Formoterol 160/4.5 1 PUFF INH IH SCH (08:37)
[2020-10-06] MEDS: Insulin LISPRO 300 UNITS/3 ML VIAL SQ SCH (08:52)
[2020-10-06] MEDS ORDERED: Cholecalciferol (D-3) 1,000 UNIT (25MCG) TABLET PO SCH (09:00)
[2020-10-06] MEDS ORDERED: Isosorbide MONOnitrate (24 HR) 30 MG TAB.ER.24H PO SCH (09:00)
[2020-10-06] MEDS ORDERED: Cyanocobalamin (B-12) 1,000 MCG TABLET PO SCH (09:00)
[2020-10-06] MEDS: Artificial Tears SOLN 15 ML BOTTLE BOTH EYES SCH (09:08)
== END 2020-10-06 12:40 | disposition home or self-care (01) ==
LOC: EMEROOARM 16:03 → 3BNU 16:03
PROVIDERS: ADMIT Internal Medicine; ATTEND Internal Medicine

== ENCOUNTER 2021-11-09 14:11 | Observation (INO) ==
[2021-11-09 15:46] LABS: Basophils # 0.1 K/mcL (0.0-0.2); Basophils % 0.7 %; Eosinophils % 0.2 %; Hematocrit 39.9 % (37.5-50.1); Hemoglobin 12.9 g/dL (12.9-16.9); Immature Granulocytes % 0.3 % (0-4); Lymphocytes # 1.6 K/mcL (0.6-4.6); Lymphocytes % 16.8 %; Mean Corpuscular HGB Conc 32.3 g/dL (31.6-35.5); Mean Corpuscular Hemoglobin 27.4 pg (28.0-33.3); Mean Corpuscular Volume 84.7 fL (83.0-100.0); Mean Platelet Volume 10.8 fL (9.4-12.4); Monocytes # 1.2 K/mcL (0.0-1.3); Monocytes % 12.3 %; Neutrophils # 6.5 K/mcL (1.6-8.9); Platelet Count 308 K/mcL (140-400); Red Blood Count 4.71 M/mcL (4.19-5.50); Segmented Neutrophils % 69.7 %; White Blood Count 9.4 K/mcL (4.3-11.1)
[2021-11-09 15:56] LABS: Influenza A PCR Negative (Negative); Influenza B PCR Negative (Negative); Resp. Syncytial Virus PCR Negative (Negative)
[2021-11-09 16:09] LABS: Calcium 9.4 mg/dL (8.6-10.3); Potassium 4.2 mEq/L (3.5-5.1)
[2021-11-09 16:19] LABS: Troponin I 0.06 ng/mL (< 0.04)
[2021-11-09 17:27] LABS: SARS-CoV-2 by PCR (In House) Positive (Negative)
[2021-11-09] MEDS ORDERED: Ondansetron 4 MG/2 ML VIAL IVP PRN (18:03)
[2021-11-09] MEDS ORDERED: Melatonin 3 MG TABLET PO PRN (18:03)
[2021-11-09] MEDS ORDERED: Naloxone 0.4 MG/ML INJ IVP PRN (18:03)
[2021-11-09] MEDS ORDERED: *HR* Dextrose 50 % in Water (Syg) 50 ML SYRINGE IVP PRN (18:20)
[2021-11-09] MEDS ORDERED: Dextrose Gel 15 GM/37.5 ML TUBE PO PRN ×2 (18:20)
[2021-11-09] MEDS ORDERED: D5% in Water 1,000 ML IVC PRN (18:20)
[2021-11-09 19:13] LABS: Estimated Average Glucose 160 mg/dl; Hemoglobin A1C 7.2 %
[2021-11-09] MEDS: Insulin LISPRO 300 UNITS/3 ML VIAL SUBQ SCH (19:15)
[2021-11-10 01:06] LABS: Alanine Aminotransferase 44 Units/L (7-52); Albumin 4.1 g/dL (3.5-5.7); Albumin/Globulin Ratio 1.4 (1.1-2.2); Alkaline Phosphatase 65 Units/L (34-104); Aspartate Amino Transferase 143 Units/L (13-39); BUN/Creatinine Ratio 16 (6-26); Bilirubin,Total 0.4 mg/dL (0.3-1.0); Blood Urea Nitrogen 22 mg/dL (8-23); Calcium 9.4 mg/dL (8.6-10.3); Carbon Dioxide 23 mEq/L (23-29); Chloride 100 mEq/L (98-107); Globulin 2.9 g/dL (2.4-3.5); Glucose 240 mg/dL (70-105); Osmolality,Calculated 289 (280-300); Potassium 4.2 mEq/L (3.5-5.1); Sodium 134 mEq/L (136-145); eGFR For African Americans > 60 (> 60); eGFR For Non-African Americans 52 (> 60)
[2021-11-10 02:16] LABS: Basophils # 0.1 K/mcL (0.0-0.2); Basophils % 0.8 %; Hemoglobin 13.2 g/dL (12.9-16.9); Immature Granulocytes % 0.3 % (0-4); Lymphocytes % 13.9 %; Mean Corpuscular HGB Conc 30.7 g/dL (31.6-35.5); Mean Corpuscular Hemoglobin 26.9 pg (28.0-33.3); Mean Corpuscular Volume 87.8 fL (83.0-100.0); Mean Platelet Volume 10.8 fL (9.4-12.4); Monocytes # 0.3 K/mcL (0.0-1.3); Monocytes % 3.5 %; Neutrophils # 5.8 K/mcL (1.6-8.9); Platelet Count 323 K/mcL (140-400); Red Cell Distribution Width 16.3 % (11.5-14.5); Segmented Neutrophils % 81.5 %; White Blood Count 7.1 K/mcL (4.3-11.1)
[2021-11-10] MEDS ORDERED: Ketorolac 30 MG/ML VIAL IVP ONE (03:04)
[2021-11-10] MEDS: *HR* Enoxaparin 40 MG/0.4 ML SYRINGE SQ SCH (06:01)
[2021-11-10] MEDS: Insulin LISPRO 300 UNITS/3 ML VIAL SUBQ SCH ×3 (08:55→17:09)
[2021-11-10] MEDS ORDERED: Acetaminophen 325 MG TABLET PO PRN (09:04)
[2021-11-10] MEDS ORDERED: Nitroglycerin 0.4 MG TAB.SUBL SL PRN (09:48)
[2021-11-10] MEDS ORDERED: tiZANidine 4 MG TABLET PO PRN (10:10)
[2021-11-10] MEDS: Aspirin Enteric Coated 81 MG Tablet PO SCH (10:32)
[2021-11-10] MEDS: *HR* OxyCODONE ER (12 HR) 10 MG TABLET PO SCH ×2 (10:33→20:24)
[2021-11-10] MEDS: Furosemide 20 MG TABLET PO SCH (10:33)
[2021-11-10] MEDS: Isosorbide MONOnitrate (24 HR) 30 MG TAB.ER.24H PO SCH (10:33)
[2021-11-10 10:51] LABS: Bilirubin,Urine Negative (Negative); Blood,Urine Small (Negative); Clarity,Urine Clear (Clear); Color,Urine Light-Yellow (Yellow); Glucose,Urine (UA) 100 mg/dL (Normal); Ketones,Urine 20 mg/dL (Negative); Leukocyte Esterase,Urine Negative (Negative); Mucus,Urine Few per lpf (None-Few); Nitrite,Urine Negative (Negative); Protein,Urine 100 mg/dL (Neg-Trace); RBC,Urine 0-3 per hpf (0-3); Specific Gravity,Urine 1.018 (1.010-1.025); Urobilinogen,Urine Normal (Normal); WBC,Urine 0-3 per hpf (0-3)
[2021-11-10] MEDS: Budesonide/Formoterol 160/4.5 1 PUFF INH IH SCH ×2 (11:17→19:26)
[2021-11-10] MEDS: *HR* OxyCODONE Immed Rel 5 MG TABLET PO SCH ×2 (14:37→20:25)
[2021-11-10] MEDS: hydrALAZINE 25 MG TABLET PO SCH ×2 (14:37→20:25)
[2021-11-10] MEDS: Artificial Tears SOLN 15 ML BOTTLE BOTH EYES SCH ×2 (14:37→20:26)
[2021-11-10] MEDS: Pregabalin 75 MG CAPSULE PO SCH ×2 (14:37→20:25)
[2021-11-10] MEDS: amLODIPine 5 MG TABLET PO SCH (17:13)
[2021-11-10] MEDS: carvediloL 25 MG TABLET PO SCH (17:13)
[2021-11-10] MEDS: Lifitegrast [Xiidra] 1 EACH Droperette OP SCH (20:26)
[2021-11-10] MEDS ORDERED: Insulin DETEMIR 100 UNIT/ML X5UNITS SUBQ SCH (21:00)
[2021-11-11 01:46] LABS: Albumin/Globulin Ratio 1.3 (1.1-2.2); Bilirubin,Total 0.3 mg/dL (0.3-1.0); Calcium 9.6 mg/dL (8.6-10.3); Globulin 3.2 g/dL (2.4-3.5); Potassium 4.8 mEq/L (3.5-5.1); Total Protein 7.2 g/dL (6.4-8.9)
[2021-11-11 03:57] LABS: Basophils % 0.1 %; Hematocrit 40.5 % (37.5-50.1); Hemoglobin 13.3 g/dL (12.9-16.9); Immature Granulocytes % 0.5 % (0-4); Lymphocytes # 2.2 K/mcL (0.6-4.6); Lymphocytes % 20.9 %; Mean Corpuscular HGB Conc 32.8 g/dL (31.6-35.5); Mean Corpuscular Hemoglobin 27.2 pg (28.0-33.3); Mean Corpuscular Volume 82.8 fL (83.0-100.0); Mean Platelet Volume 11.1 fL (9.4-12.4); Monocytes # 1.2 K/mcL (0.0-1.3); Monocytes % 10.9 %; Neutrophils # 7.2 K/mcL (1.6-8.9); Platelet Count 348 K/mcL (140-400); Red Blood Count 4.89 M/mcL (4.19-5.50); Red Cell Distribution Width 15.8 % (11.5-14.5); Segmented Neutrophils % 67.6 %; White Blood Count 10.6 K/mcL (4.3-11.1)
[2021-11-11] MEDS: *HR* Enoxaparin 40 MG/0.4 ML SYRINGE SQ SCH (05:04)
[2021-11-11] MEDS: Budesonide/Formoterol 160/4.5 1 PUFF INH IH SCH (08:00)
[2021-11-11] MEDS ORDERED: lisinopriL 20 MG TABLET PO SCH (09:00)
[2021-11-11] MEDS ORDERED: Cyanocobalamin (B-12) 1,000 MCG TABLET PO SCH (09:00)
[2021-11-11] MEDS: Pregabalin 75 MG CAPSULE PO SCH ×2 (09:34→17:54)
[2021-11-11] MEDS: carvediloL 25 MG TABLET PO SCH ×2 (09:34→17:54)
[2021-11-11] MEDS: *HR* OxyCODONE Immed Rel 5 MG TABLET PO SCH ×2 (09:34→17:54)
[2021-11-11] MEDS: hydrALAZINE 25 MG TABLET PO SCH ×2 (09:35→17:54)
[2021-11-11] MEDS: Furosemide 20 MG TABLET PO SCH (09:35)
[2021-11-11] MEDS: Aspirin Enteric Coated 81 MG Tablet PO SCH (09:35)
[2021-11-11] MEDS: Isosorbide MONOnitrate (24 HR) 30 MG TAB.ER.24H PO SCH (09:35)
[2021-11-11] MEDS: Artificial Tears SOLN 15 ML BOTTLE BOTH EYES SCH ×2 (09:36→16:08)
[2021-11-11] MEDS: Lifitegrast [Xiidra] 1 EACH Droperette OP SCH (09:36)
[2021-11-11] MEDS: *HR* OxyCODONE ER (12 HR) 10 MG TABLET PO SCH (09:40)
[2021-11-11] MEDS: Insulin LISPRO 300 UNITS/3 ML VIAL SUBQ SCH ×3 (09:41→16:08)
[2021-11-11 11:13] VITALS: BP 163/82; PULSE 65; TEMP 98.3; O2SAT 95
[2021-11-11] MEDS: amLODIPine 5 MG TABLET PO SCH (17:54)
== END 2021-11-11 18:46 | disposition home or self-care (01) ==
LOC: EMEROOARM 14:11 → 3BNU 14:11 → SUATTDRO 19:45 → OBSVTOIN 19:45 → INTOOBSV 19:45 → 3BNU 21:22
PROVIDERS: ADMIT Internal Medicine; ATTEND Hospitalist